=== PATIENT | female | born 1965 | race Caucasian/White ===

== ENCOUNTER 2017-06-01 17:05 | Emergency (ER) | payer MEDICAID ==
[~2017-06-01] VITALS: Ht 167.6 cm; Wt 69.0 kg
[2017-06-01 17:08] VITALS: BP 128/99
[2017-06-01] MEDS ORDERED: AMOX-422 PO (18:05)
[2017-06-01] MEDS ORDERED: TRAM50TA2 PO (18:05)
== END 2017-06-01 18:35 | disposition home or self-care (01) ==
LOC: ER 17:06
DX: K04.7 Periapical abscess without sinus (principal); F17.200 Nicotine dependence, unspecified, uncomplicated; F15.10 Other stimulant abuse, uncomplicated
CPT/HCPCS: 99283